=== PATIENT | male | born 1945 | race Caucasian/White ===

== ENCOUNTER 2019-03-04 11:20 | Emergency (ER) | payer MEDICARE, BC ==
[2019-03-04 11:54] VITALS: BP 130/62
--- NOTE | 2019-03-04 12:22 | UC ---
Ear Complaint HPI - HPI Summary HPI Summary: He shouldn't is a 73-year-old male with stage IV esophageal cancer accompanied by [id number] for feeling of plugged ears bilaterally for a couple days. Patient states history of wax buildup that requires flushing. He would like flushing today. Notes "buzzing" in right ear. Notes decreased hearing in both ears. Deneis ear pain. Denies drainage from ears. Denies dizziness. Denies headache. Denies nausea, vomiting. Patient notes chronic bedsore on his buttock that is causing him discomfort. Patient and [id number] deny wanting this looked at because it is chronic and his home nurse is coming tomorrow. He denies any drainage or blood from the sore. Denies fever and chills. 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 cataract. ORIF L leg - Family History Known Family History: Positive: Non-Contributory - Social History Alcohol Use: None Substance Use Type: None Smoking Status (MU): Never Smoked Tobacco Review of Systems All Other Systems Reviewed And Are Negative: Yes Constitutional: Positive: Negative. Negative: Fever, Chills Eyes: Positive: Negative. Negative: Blurred Vision, Diplopia ENT: Positive: Ear Ache - bilateral ear pressure and decreased hearing. Negative: Sore Throat, Nasal Discharge, Sinus Congestion, Sinus Pain/Tenderness Respiratory: Positive: Negative Cardiovascular: Positive: Negative Gastrointestinal: Positive: Negative Neurological: Positive: Negative Physical Exam Triage Information Reviewed: Yes Appearance: No Pain Distress, Cachectic Vital Signs: Initial Vital Signs Temp 97.4 F 03/04/19 11:45 Pulse 89 03/04/19 11:45 Resp 18 03/04/19 11:45 BP 130/62 03/04/19 11:45 Pulse Ox 99 03/04/19 11:45 Vital Signs Reviewed: Yes Eyes: Positive: Conjunctiva Clear ENT: Positive: Hearing grossly normal, Pharynx normal, TMs normal - ears irrigated. Normal TMs, intact, normal light reflex, and landmarks bilaterally., Uvula midline, Other - right ear canal with trace blood. TM intact with normal light reflex. Negative: Nasal congestion, Nasal drainage, TM bulging, TM dull, TM red, Tonsillar swelling, Tonsillar exudate Neck exam: Normal Respiratory Exam: Normal Respiratory: Positive: Lungs clear, Normal breath sounds, No respiratory distress Cardiovascular Exam: Normal Cardiovascular: Positive: RRR Neurological: Positive: Alert Psychological: Positive: Age Appropriate Behavior Ear Complaint Course/Dx - Course Course Of Treatment: Discussed no sign of ear infection with patient. Discussed tinnitus and different causes of this that will need further evaluation by primary care or ENT. Discussed with patient to return or go to the emergency room if he experiences dizziness, fever, chills, nausea, or vomiting. - Differential Dx/Diagnosis Provider Diagnosis: Tinnitus, right ear Discharge ED - Sign-Out/Discharge Documenting (check all that apply): Patient Departure All imaging exams completed and their final reports reviewed: No Studies - Discharge Plan Condition: Stable Disposition: HOME Patient Education Materials: Tinnitus (ED) Referrals: Yasmeen EDOUARD,Magdy Seth [Primary Care Provider] - As Soon As Possible Additional Instructions: Your ears were irrigated today. There was no sign of ear infection or eardrum perforation. The ringing in your ears is called Tinnitus. There are many causes and I strongly encourage your to follow up with your primary care physician for further evaluation. Go to the emergency room if your experience fever, chills, dizziness, nausea, vomiting, or pain. - Billing Disposition and Condition Condition: STABLE Disposition: Home
== END 2019-03-04 13:11 | disposition home or self-care (01) ==
LOC: UCCORT 11:20
DX: H93.11 Tinnitus, right ear (principal); H61.23 Impacted cerumen, bilateral; L89.309 Pressure ulcer of unspecified buttock, unspecified stage; C15.9 Malignant neoplasm of esophagus, unspecified
CPT/HCPCS: 99213; G0463